=== PATIENT | female | born 2005 | race Asian ===

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

== ENCOUNTER 2025-03-15 01:27 | Outpatient (CLI) | payer OTHER, SELFPAY ==
[2025-03-18 14:20] LABS: TB Interpretation Negative (Negative)
== END 2025-03-15 01:28 | disposition home or self-care (01) ==
PROVIDERS: PCP Emergency Medicine; Visit Provider Nurse Practitioner Family
DX: Z11.1 Encounter for screening for respiratory tuberculosis (principal)
CPT/HCPCS: 36415; 86480